=== PATIENT | male | born 1945 | race Caucasian/White ===

== ENCOUNTER 2020-03-12 00:27 | Day surgery (SDC) | payer MEDICARE, SELFPAY ==
--- NOTE | 2020-03-03 14:28 | P.HP_ITS ---
History of Present Illness History of Present Illness Consent: Risks, benefits, and alternatives have been discussed and questions answered. Patient agrees to proceed with procedure. 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 After discussion of options with Dr. Russell he's opted for definitive pelvic radiation. He presents for placement of transrectal ultrasound with transperineal placement of SpaceOAR. Pt. aware of risks of this procedure including, but not limited to, rectal injury, urinary tract infection with possible sepsis or septic shock, hematuria and inability to deliver the SpaceOAR. He also aware there is no alternative procedure to accomplish the same ends at this time. Review of Systems Cardiovascular: Cardiovascular: Denies chest pain, Denies lightheadedness, Denies palpitations and Denies dyspnea Respiratory: Respiratory: Denies dyspnea Gastrointestinal: Gastrointestinal: Denies diarrhea, Denies nausea and Denies vomiting Genitourinary: Genitourinary: Denies hematuria and Denies dysuria Endocrine: Endocrine: Denies palpitations Exam Const: General: no acute distress Resp: Effort & Inspection: normal respiratory effort GI: Inspection: non-distended GI Palp: No abdominal tenderness and No Guarding due to palpation present (GI) Auscultation: normal bowel sounds Assessment and Plan Assessment and plan (1) Prostate cancer: Code(s): C61 - Malignant neoplasm of prostate Status: Acute Assessment and Plan: * Transrectal ultrasound with transperineal placement of SpaceOAR. Pt. aware of risks of this procedure including, but not limited to, rectal injury, urinary tract infection with possible sepsis or septic shock, hematuria and inability to deliver the SpaceOAR. He also aware there is no alternative procedure to accomplish the same ends at this time.
[2020-03-09 14:45] VITALS: BMI 25.9
[2020-03-12 06:45] VITALS: BP 138/68; PULSE 62; RESP 16; TEMP 36.1; O2SAT 100
--- NOTE | 2020-03-12 07:18 | WPDHPUPDATE1 ---
History and Physical Update Update Date/Time: 03/12/20 07:18 History and Physical has been reviewed, including an updated exam of the patient. There are NO changes in the patient's condition. Risks, benefits, and alternatives have been discussed and questions answered. Patient agrees to proceed with procedure.
[2020-03-12] MEDS: LACTATED RINGERS 1,000 ML 30 ML IV CONT (07:20)
[2020-03-12 07:26] LABS: Hematocrit 37.2 % (42.0-52.0); Hemoglobin 12.6 g/dL (14.0-18.0)
[2020-03-12 07:27] LABS: Glucose Point of Care 128 (65-105)
[2020-03-12 07:36] LABS: Partial Thromboplastin Time 28.1 SECONDS (22.3-36.8); Prothrombin Time 12.7 Seconds (11.1-14.7)
[2020-03-12 07:38] LABS: Blood Urea Nitrogen 14 mg/dL (9-20); Calcium 9.3 mg/dL (8.4-10.2); Carbon Dioxide 33 mmol/L (22-30); Chloride 100 mmol/L (98-107); Estimated CRCL calculation 93 ml/min; Estimated Glomerular Filt Rate > 60; Glucose 134 mg/dL (75-110); Sodium 139 mmol/L (137-145)
--- NOTE | 2020-03-12 07:47 | WPDANESEPPF ---
Anes - Initial Pre Proc Eval Procedure: Operation Date: 03/12/20 09:00 Proposed Procedures p Insertion SpaceOAR Hydrogel System - Cody Moreau MD Date/Time: 03/12/20 07:47 Surgeon: Cody Moreau MD Pre Op Diagnosis: Prostate Ca Patient Data Age: 74 Gender: M Height: 5 ft 10 in Weight: 82.5 kg Last Vital Signs Temp 36.1 C L 03/12/20 06:45 Pulse 62 03/12/20 06:45 Resp 16 03/12/20 06:45 BP 138/68 03/12/20 06:45 Pulse Ox 100 03/12/20 06:45 Allergies Allergy/AdvReac Type Severity Reaction Status Date / Time lisinopril AdvReac Cough Verified 03/12/20 07:03 Home Medications Medication Instructions Recorded Confirmed Type [place]-3 Fish Oil 500 mg DAILY 03/09/20 03/12/20 History aspirin [Aspir-81] 81 mg PO DAILY 03/09/20 03/12/20 History atorvastatin 40 mg PO DAILY 03/09/20 03/12/20 History glucosamine-chondroitin [Osteo 2 tablet PO DAILY 03/09/20 03/12/20 History Bi-Flex] hydrochlorothiazide 12.5 mg PO DAILY 03/09/20 03/12/20 History losartan 50 mg PO DAILY 03/09/20 03/12/20 History metformin 1,000 mg PO BID 03/09/20 03/12/20 History metoprolol succinate 12.5 mg PO DAILY 03/09/20 03/12/20 History polysaccharide iron complex 150 mg PO DAILY 03/09/20 03/12/20 History [Ferrex 150] Laboratory Tests 03/12/20 03/12/20 03/12/20 07:12 07:12 07:12 Hgb 12.6 g/dL L g/dL (14.0-18.0) Hct 37.2 % L % (42.0-52.0) PT 12.7 Seconds Seconds (11.1-14.7) INR 1.0 APTT 28.1 SECONDS SECONDS (22.3-36.8) Sodium 139 mmol/L mmol/L (137-145) Potassium 4.0 mmol/L mmol/L (3.4-5.0) Chloride 100 mmol/L mmol/L (98-107) Carbon Dioxide 33 mmol/L H mmol/L (22-30) BUN 14 mg/dL mg/dL (9-20) Creatinine 0.60 mg/dL L mg/dL (0.7-1.3) Estim Creat Clear Calc 93 ml/min ml/min Estimated GFR > 60 (59 - ) Glucose 134 mg/dL H mg/dL (75-110) POC Capillary Glucose Calcium 9.3 mg/dL mg/dL (8.4-10.2) 03/12/20 07:24 Hgb Hct PT INR APTT Sodium Potassium Chloride Carbon Dioxide BUN Creatinine Estim Creat Clear Calc Estimated GFR Glucose POC Capillary Glucose 128 mg/dl H mg/dl (65-105) Calcium Patient hx anesthesia problems: none Family hx anesthesia problems: none [facility] Past Medical History Medical History (Updated 03/12/20 @ 07:48 by Shaheed Ballard MD) Diabetes HTN (hypertension) Hyperlipidemia Surgical History Surgical History (Updated 03/12/20 @ 07:49 by Shaheed Ballard MD) History of cataract surgery Hx of cystoscopy Hx of tonsillectomy S/P right knee arthroscopy Anes - Eval Final PreProcedure Day of Procedure 03/12/20 07:47 Patient weight: overweight Heart: regular rate and rhythm Lungs: clear to auscultation Airway: Mallampati scale class II Neurological: alert and oriented Last oral intake: >/= 8 hours ASA classification: III Emergent: no Anesthetic plan: proceed Anesthesia type and monitoring: general LMA and standard monitoring Informed Consent: The patient's anesthetic plan and its attendant risks and benefits were discussed with the patient/family/POA. Questions were solicited and answers provided to the satisfaction of the patient/family/POA.
[2020-03-12] MEDS: ceFAZolin 2 GM/D5W 50 ML 2 GM/50 ML BAG IVPB (08:48)
[2020-03-12 09:15] VITALS: BP 114/67; PULSE 58; RESP 14; TEMP 36.1; O2SAT 100
--- NOTE | 2020-03-12 09:22 | PM.PROC ---
Procedure Note - Detailed Date of procedure: 03/12/20 Pre-op diagnosis: Prostate Ca Post-op diagnosis: same Procedure performed: Insertion SpaceOAR Description of procedure: This patient has been diagnosed with prostate cancer. Patient has met with a radiation oncologist who has prescribed a course of radiation for treatment of the malignancy. Please refer to the Radiation Oncologist's note for radiation method, dose, number of fractions. After discussing with the radiation oncologist and the patient, it has been agreed upon to proceed with SpaceOAR placement. The purpose of SpaceOAR is to reduce rectal irradiation during radiation therapy by placing an absorbable polyethylene glycol (PEG) hydrogel (SpaceOAR) into perirectal fat space, thereby pushing the rectum away from the prostate. Prior to the procedure, a timeout was performed confirming the patient's identity and planned the procedure. Anesthesia was induced without complication. Antibiotics were administered prophylactically, and the patient completed an enema at home prior to the procedure. The patient was positioned in the dorsal lithotomy position. A transrectal ultrasound probe was inserted per rectum with clear visualization of the prostatic base and apex. SpaceOAR hydrogel was prepared as described in the floor worker transfer bay?s 'Instructions For Use'. Under transrectal ultrasound guidance, a 15 cm 18G needle was inserted, transperineal, through the rectourethralis muscle and the needle tip advanced into the perirectal fat posterior to the prostate. The needle position, and downward bevel, were confirmed in both sagittal and axial crouch. 3-5cc of Sterile Saline was used to hydro-dissect the space between the [place]illiers? fascia and anterior rectal wall. Aspiration did not yield any bleeding. With the needle tip at mid gland, the axial field was viewed to confirm the needle was not in the rectal wall -- movement of the needle tip without corresponding movement of the rectal wall confirmed perirectal placement. The assembled SpaceOAR delivery system was then attached to the 18G needle. Under ultrasound guidance in the sagittal plane, a smooth, continuous injection technique was used to dispense all 10cc of the SpaceOAR hydrogel into the space between the prostate and rectum. Optimal visualization of the needle during hydrogel administration was maintained at all times. An axial measurement of the space between the prostate (mid gland) and rectum immediately post-SpaceOAR injection was noted and measured 9mm. No suspected penetration or compromise of the rectal wall occurred. Anesthesia: GLMA Surgeon: Cody Moreau MD Estimated blood loss (mL): 0 Drains: Yes Packing: Yes Pathology: yes Complications: No immediate complications Condition: stable Disposition: PACU
[2020-03-12 09:30] VITALS: BP 128/72; PULSE 58; RESP 14; O2SAT 100
[2020-03-12 09:44] VITALS: BP 124/67; PULSE 56; RESP 13; O2SAT 100
[2020-03-12 10:00] VITALS: BP 128/78; PULSE 60; RESP 18; O2SAT 100
[2020-03-12 10:35] VITALS: BP 124/68; PULSE 60; RESP 16; O2SAT 98
== END 2020-03-12 11:00 | disposition home or self-care (01) ==
PROVIDERS: Anesthesiology; Visit Provider Urology
PROC: (CPT 55874; principal; 2020-03-12 09:00)
DX: C61 Malignant neoplasm of prostate (principal); I10 Essential (primary) hypertension; E78.5 Hyperlipidemia, unspecified; E11.9 Type 2 diabetes mellitus without complications; Z79.84 Long term (current) use of oral hypoglycemic drugs; Z79.82 Long term (current) use of aspirin
CPT/HCPCS: 55874; 36415; 80048; 85014; 85018; 85610; 85730; A9270; J0690; J2405; J2704; J3010; J7120